=== PATIENT | female | born 1950 | race Caucasian/White ===

== ENCOUNTER 2020-02-28 06:32 | Day surgery (SDC) | payer BC ==
[~2020-02-28 06:32] MED LIST: Lactated Ringers 1,000 ML IV SCH; Sodium Chloride 0.9% 10 ML SDV IV PRN; Sodium Chloride 0.9% 10 ML Syringe FLUSH PRN; Sodium Chloride 0.9% 2.5 ML Syringe FLUSH PRN; ceFAZolin 2 GM in Premix Bag 1 BAG IV ONE
[2020-02-28] MEDS ORDERED: Midazolam 1 MG/ML 2 ML SDV ONE (07:06)
[2020-02-28] MEDS ORDERED: fentaNYL 100 MCG/2 ML SDV ONE (07:06)
[2020-02-28] MEDS ORDERED: Propofol 200 MG/20 ML SDV ONE (07:06)
[2020-02-28] MEDS ORDERED: Ondansetron 4 MG/2 ML SDV ONE (07:16)
[2020-02-28] MEDS ORDERED: Lidocaine 2% 5 ML SDV ONE (07:16)
[2020-02-28] MEDS ORDERED: Ketorolac 30 MG/ML SDV ONE (07:16)
[2020-02-28] MEDS ORDERED: Glycopyrrolate 0.2 MG/ML SDV ONE ×2 (07:16→07:20)
[2020-02-28] MEDS ORDERED: Succinylcholine/Sod PF 100 MG/5 ML SYRINGE IV ONE (07:20)
[2020-02-28] MEDS ORDERED: Rocuronium Bromide 50 MG/5 ML Syringe ONE (07:20)
--- NOTE | 2020-02-28 08:24 | PCM.PREANE ---
Preanesthetic Assessment - Anesthesia/Transfusion/Family Hx Anesthesia History: Prior Anesthesia Without Reaction Family History of Anesthesia Reaction: No Transfusion History: No Prior Transfusion(s) - Review of Systems General: No Symptoms Pulmonary: No Symptoms Cardiovascular: No Symptoms Gastrointestinal: No Symptoms Neurological: No Symptoms Other: Reports: None - Physical Assessment NPO Status Date: 02/27/20 Height: 5 ft 4 in Weight: 97.069 kg ASA Class: 3 Mental Status: Alert & Oriented x3 Airway Class: Mallampati = 2 Dentition: Reports: Normal Dentition ROM/Head Extension: Full Lungs: Clear to Auscultation, Normal Respiratory Effort Cardiovascular: Regular Rate, Regular Rhythm - Lab Values: Laboratory Last Values SARS-CoV-2 RNA (YUDI) NEGATIVE (NEGATIVE) 02/28/20 06:40 - Allergies Allergies/Adverse Reactions: Allergies Allergy/AdvReac Type Severity Reaction Status Date / Time No Known Allergies Allergy Verified 02/26/20 11:38 - Blood Blood Available: No - Anesthesia Plan Pre-Op Medication Ordered: None - Acknowledgements Anesthesia Type Planned: General Anesthesia Pt an Appropriate Candidate for the Planned Anesthesia: Yes Alternatives and Risks of Anesthesia Discussed w Pt/Guardian: Yes Pt/Guardian Understands and Agrees with Anesthesia Plan: Yes Additional Comments: PMH: ami in 1998, no revasc no sx, NIDDM, chr pain-arthritic, EDU using CPAP, hyperuricemea, PLAN: GET PreAnesthesia Questionnaire HEENT History: Reports: Other (See Below) Other HEENT History: wears glasses Cardiovascular History: Reports: MO Other Cardiovascular History: states [place] in 1998- no stents- no chest pain or SOB since Respiratory History: Reports: Sleep Apnea Other Respiratory History: uses CPAP every night Gastrointestinal History: Reports: None Genitourinary History: Reports: Renal Calculus Other Genitourinary History: has previously passed 4 stones [employer]ICAL EQU[employer]MENT REPA[employer]ER History: Reports: Endometrial Ablation, Musculoskeletal History: Reports: Arthritis, Fracture Other Musculoskeletal History: hx of fx ankle and fingers Neurological History: Reports: Other (See Below) Other Neuro History: hx of motion sickness Psychiatric History: Reports: Depression Endocrine/Metabolic History: Reports: Diabetes, Type II, Obesity/BMI 30+ Hematologic History: Reports: None Immunologic History: Reports: None Oncologic (Cancer) History: Reports: None Dermatologic History: Reports: None - Infectious Disease History Infectious Disease History: Reports: None - Past Surgical History Head Surgeries/Procedures: Reports: None Female Surgical History: Reports: Endometrial Ablation Other Endocrine Surgeries/Procedures: hx of removal of lump in neck- close to the thyroid gland Musculoskeletal Surgical History: Reports: Other (See Below) Other Musculoskeletal Surgeries/Procedures:: hx of left Achilles tendon repair - SUBSTANCE USE Smoking Status *Q: Never Smoker Recreational Drug Use History: No - HOME MEDS Home Medications: Home Meds Diclofenac Sodium [Voltaren] 50 mg PO DAILY 03/10/19 [History] Metoprolol Succinate [Kapspargo Sprinkle] 25 mg PO QAM 03/10/19 [History] Mv-Mn/FA/Vit K/Lycop/Lut/Coq10 [Daily Multivitamin Capsule] 1 each PO DAILY 03/10/19 [History] Pravastatin [Pravachol] 40 mg PO BEDTIME 03/10/19 [History] metFORMIN [Glucophage] 500 mg PO BID 03/10/19 [History] traZODone HCl [Trazodone HCl] 100 mg PO BEDTIME 03/10/19 [History] Acetaminophen [Tylenol Extra Strength] 500 mg PO TID PRN 02/26/20 [History] Allopurinol [Zyloprim] 300 mg PO DAILY 02/26/20 [History] Cetirizine [ZyrTEC] 10 mg PO DAILY 02/26/20 [History] Gabapentin [Neurontin] 300 mg PO TID 02/26/20 [History] Tamsulosin [Flomax] 0.4 mg PO BID 02/26/20 [History] Vitamin B Complex 1 cap PO DAILY 02/26/20 [History] oxyCODONE 5 - 10 mg PO Q4H PRN 02/26/20 [History] - CURRENT (IN HOUSE) MEDS Current Meds: Current Medications Lactated Ringer's (Ringers, Lactated) 1,000 mls @ 100 mls/hr IV ASDIRECTED CATHRYN Sodium Chloride (Saline Flush) 10 ml FLUSH ASDIRECTED PRN PRN Reason: Keep Vein Open Sodium Chloride (Saline Flush) 2.5 ml FLUSH ASDIRECTED PRN PRN Reason: Keep Vein Open Sodium Chloride (Normal Saline) 10 ml IV ASDIRECTED PRN PRN Reason: IV Use Discontinued Medications Fentanyl (Sublimaze) Confirm Administered Dose 100 mcg .ROUTE .STK-MED ONE Stop: 10/01/20 07:07 Glycopyrrolate (Robinul) Confirm Administered Dose 0.2 mg .ROUTE .STK-MED ONE Stop: 02/28/20 07:17 Glycopyrrolate (Robinul) Confirm Administered Dose 0.6 mg .ROUTE .STK-MED ONE Stop: 02/28/20 07:21 Cefazolin Sodium/Dextrose 2 gm (/ Premix) 50 mls @ 100 mls/hr IV ONCALL ONE Stop: 02/28/20 00:30 Ketorolac Tromethamine (Toradol) Confirm Administered Dose 30 mg .ROUTE .STK-MED ONE Stop: 02/28/20 07:17 Lidocaine (Xylocaine-Mpf 2%) Confirm Administered Dose 5 ml .ROUTE .STK-MED ONE Stop: 02/28/20 07:17 Midazolam HCl (Versed 1 Mg/Ml) Confirm Administered Dose 2 mg .ROUTE .STK-MED ONE Stop: 02/28/20 07:07 Ondansetron HCl (Zofran) Confirm Administered Dose 4 mg .ROUTE .STK-MED ONE Stop: 02/28/20 07:17 Propofol (Diprivan 20 Ml) Confirm Administered Dose 200 mg .ROUTE .STK-MED ONE Stop: 02/28/20 07:07 Rocuronium Crockett (Rocuronium Crockett) Confirm Administered Dose 50 mg .ROUTE .STK-MED ONE Stop: 02/28/20 07:21
[2020-02-28] MEDS ORDERED: ceFAZolin 1 GM Vial ONE (08:30)
[2020-02-28] MEDS ORDERED: Sodium Chloride 0.9% 20 ML ONE (08:30)
[2020-02-28] MEDS ORDERED: Albuterol 0.083% 2.5 MG/3 ML Neb Soln NEB PRN (08:31)
[2020-02-28] MEDS ORDERED: Naloxone 0.4 MG/ML Syringe IVPUSH PRN (08:31)
[2020-02-28] MEDS ORDERED: fentaNYL 100 MCG/2 ML SDV IVPUSH PRN (08:31)
[2020-02-28] MEDS ORDERED: Atropine 0.1 MG/ML 10 ML Syringe IVPUSH PRN ×2 (08:31)
[2020-02-28] MEDS ORDERED: EPINEPHrine 1:10,000 1 MG/10 ML Syringe IVPUSH PRN (08:31)
[2020-02-28] MEDS ORDERED: 50% Dextrose in Water 50 ML Syringe IVPUSH PRN (08:31)
[2020-02-28] MEDS ORDERED: Iopamidol 408 MG/ML 20 ML SDV ONE ×2 (08:54→08:59)
[2020-02-28] MEDS ORDERED: Acetaminophen 500 MG Tab PO PRN (10:01)
--- NOTE | 2020-02-28 10:25 | OR ---
SURGEON: Jayda Baldwin M.D. DATE OF PROCEDURE: 02/28/2020 PREOPERATIVE DIAGNOSIS: Left ureteral stone. POSTOPERATIVE DIAGNOSIS: Left ureteral stone. OPERATION: Cystoscopy, double-J stent placement, left retrograde pyelogram, and extracorporeal shockwave therapy. DESCRIPTION OF PROCEDURE: The patient was given general anesthesia. She is on the lithotripsy table. The position of the patient was adjusted until the position was acceptable to the location of the stone. The stone, however, could not be clearly visualized on the fluoroscopy, so a left retrograde study was done, which showed a point of obstruction just below the left UPJ about 2 cm. A double-J stent was placed to help us guide the treatment, which was then given to the area of obstruction where the stone was. Eventually, the patient received a total of 2200 shocks. At the end of the treatment, the patient was moved to the recovery room in stable condition. PLAN: I will see her again in about 2 weeks, get a CT scan and should be able to remove the stent. CHEYANNE / KENNETH /[id number]
--- NOTE | 2020-02-28 10:27 | PCM.POSTAN ---
POST ANESTHESIA ASSESSMENT - MENTAL STATUS Mental Status: Alert, Oriented - VITAL SIGNS Vital Signs: Last Vital Signs Temp 36.3 C 02/28/20 10:02 Pulse 70 02/28/20 10:24 Resp 11 L 02/28/20 10:24 BP 139/58 L 02/28/20 10:24 Pulse Ox 94 L 02/28/20 10:24 - RESPIRATORY Respiratory Status: Respiratory Rate WNL, Airway Patent, O2 Saturation Stable - CARDIOVASCULAR CV Status: Pulse Rate WNL, Blood Pressure Stable - GASTROINTESTINAL GI Status: No Symptoms - POST OP HYDRATION Hydration Status: Adequate & Stable
--- NOTE | 2020-02-28 10:38 | PCM48HPAN ---
Post Anesthesia Note - EVALUATION WITHIN 48HRS OF ANESTHETIC Vital Signs in Normal Range: Yes Patient Participated in Evaluation: Yes Respiratory Function Stable: Yes Airway Patent: Yes Cardiovascular Function Stable: Yes Hydration Status Stable: Yes Pain Control Satisfactory: Yes Nausea and Vomiting Control Satisfactory: Yes Mental Status Recovered: Yes Vital Signs: Last Vital Signs Temp 97.4 F 02/28/20 10:02 Pulse 66 02/28/20 10:30 Resp 12 02/28/20 10:30 BP 135/57 L 02/28/20 10:30 Pulse Ox 95 02/28/20 10:30
[2020-02-28] MEDS ORDERED: Gabapentin 300 MG Cap PO SCH (14:00)
[2020-02-28] MEDS ORDERED: Tamsulosin 0.4 MG Cap.ER PO SCH (21:00)
[2020-02-28] MEDS ORDERED: metFORMIN 500 MG Tab.ER PO SCH (21:00)
[2020-02-28] MEDS ORDERED: traZODone 50 MG Tab PO SCH (21:00)
[2020-02-28] MEDS ORDERED: Pravastatin 40 MG Tab PO SCH (21:00)
[2020-02-29] MEDS ORDERED: Diclofenac Sodium 50 MG Tab.EC PO SCH (09:00)
[2020-02-29] MEDS ORDERED: Metoprolol Succinate 25 MG Tab.ER PO SCH (09:00)
[2020-02-29] MEDS ORDERED: VITAMIN B COMPLEX PO SCH (09:00)
[2020-02-29] MEDS ORDERED: Cetirizine 10 MG Tab PO SCH (09:00)
[2020-02-29] MEDS ORDERED: Multivitamin Tab PO SCH (09:00)
[2020-02-29] MEDS ORDERED: Allopurinol 300 MG Tab PO SCH (09:00)
== END 2020-02-28 12:00 | disposition home or self-care (01) ==
LOC: MW.SDS 06:32
PROVIDERS: ATTEND Urology
DX: N13.2 Hydronephrosis with renal and ureteral calculous obstruction (principal); Z01.812 Encounter for preprocedural laboratory examination; Z20.828 Contact with and (suspected) exposure to other viral communicable diseases; E11.9 Type 2 diabetes mellitus without complications; F32.9 Major depressive disorder, single episode, unspecified; G47.33 Obstructive sleep apnea (adult) (pediatric); R74.01 Elevation of levels of liver transaminase levels; G89.4 Chronic pain syndrome; M48.00 Spinal stenosis, site unspecified; M15.9 Polyosteoarthritis, unspecified; D35.00 Benign neoplasm of unspecified adrenal gland; E66.09 Other obesity due to excess calories; L68.0 Hirsutism; R79.89 Other specified abnormal findings of blood chemistry; Z86.010 Personal history of colon polyps; Z79.84 Long term (current) use of oral hypoglycemic drugs; Z79.899 Other long term (current) drug therapy; Z87.19 Personal history of other diseases of the digestive system; Z68.36 Body mass index [BMI] 36.0-36.9, adult
CPT/HCPCS: 50590; 52332; 87635; C2617; J0330; J0690; J1885; J2001; J2250; J2405; J2704; J3490; J7120; Q9966; 00873; J3010; U0002